=== PATIENT | female | born 1945 | race African-American/Black ===

== ENCOUNTER 2016-12-28 21:32 | Observation (INO) | payer OTHER ==
[~2016-12-28] VITALS: Ht 170.2 cm; Wt 86.7 kg
[~2016-12-28 21:32] MED LIST: ASPIR 8181 M1 PO; CALCITRATE + D1 EACH PO; FISH OIL 1,0001 EA10 PO; GLUCOSAMINE1000 MG PO; LISINOPRIL30 MG PO; MAGNESIUM100 MG PO; MULTI-VITAMIN1 EAC3 PO; NAPROXEN500 MG PO; NORVASC10 MG PO; PREDNISONE20 MG PO
[2016-12-28 22:14] LABS: HEMATOCRIT 39.9 % (36.0-46.0); MCHC 34.3 G/DL (30.0-36.0); MCV 81.6 FL (83-99); MEAN PLAT.VOLUME 10.6 uM^3 (9.5-12.4); PLATELET COUNT 234 K/uL (156-360); RBC DIS.WIDTH-CV 14.9 % (11.8-14.6); RBC DIS.WIDTH-SD 43.3 % (39-53); RED BLOOD COUNT 4.89 M/uL (3.80-5.20); WHITE BLOOD COUNT 10.2 K/uL (4.1-10.2)
[2016-12-28 22:23] LABS: CHLORIDE 106 mEq/L (99-109); POTASSIUM 3.8 mEq/L (3.7-5.4); SODIUM 141 mEq/L (136-147)
[2016-12-28 22:24] LABS: GLUCOSE 167 mg/dL (70-99)
[2016-12-28 22:26] LABS: ANION GAP 9 MEQ/L (2-14)
[2016-12-28 22:28] LABS: GFR ESTIMATE (CALCULATED) > 59 mL/min/
[2016-12-28 22:29] LABS: UREA NITROGEN (BUN) 18 mg/dL (9-23)
[2016-12-28 23:44] LABS: TROP-I INTERPRETATION NEGATIVE; TROPONIN-I < 0.01 ng/mL (0.0-0.30)
[2016-12-29 03:01] LABS: SERUM ETHYL ALCOHOL < 10 mg/dL
[2016-12-29 04:17] VITALS: BP 155/71
[2016-12-29 06:23] LABS: AMPHETAMINES QUANT VALUE 0 NG/ML; BARBITUATES QUANT VALUE 0 NG/ML; BENZODIAZEPINES QUANT VALUE 0 NG/ML; BENZODIAZEPINES, URINE SCREEN Negative (200 ng/mL); MARIJUANA QUANT VALUE 0 NG/ML; OPIATES QUANTITATIVE VALUE 0 NG/ML; PHENCYCLIDINE QUANT VALUE 0 NG/ML
[2016-12-29 07:47] VITALS: BP 140/73
[2016-12-29 11:31] VITALS: BP 164/72
[2016-12-29 12:21] LABS: TROP-I INTERPRETATION NEGATIVE; TROPONIN-I 0.01 ng/mL (0.0-0.30)
[2016-12-29] MEDS ORDERED: ACID CONTROLLER20 MG PO (13:57)
[2016-12-29] MEDS ORDERED: TRAMADOL HCL50 MG PO (13:58)
== END 2016-12-29 14:48 | disposition home or self-care (01) ==
LOC: EME 21:32 → EDOF 12-29 02:20 → 5WEST 12-29 02:20 → EDOF 12-29 02:20 → 5WEST 12-29 02:35 → EDOF 12-29 02:35 → 5WEST 12-29 04:05
PROVIDERS: Internal Medicine Cardiovascular Disease; Physician Assistant Medical
DX: R55 Syncope and collapse (principal); R07.81 Pleurodynia; R00.1 Bradycardia, unspecified; I10 Essential (primary) hypertension; R51 Headache; R00.2 Palpitations; R73.9 Hyperglycemia, unspecified; S00.212A Abrasion of left eyelid and periocular area, initial encounter; Z96.651 Presence of right artificial knee joint; Z82.49 Family history of ischemic heart disease and other diseases of the circulatory system; Z84.1 Family history of disorders of kidney and ureter; Z80.42 Family history of malignant neoplasm of prostate; Z79.82 Long term (current) use of aspirin; Y92.89 Other specified places as the place of occurrence of the external cause; Y93.01 Activity, walking, marching and hiking
CPT/HCPCS: 70450; 71020; 71250; 80048; 80306 90; 84484; 85027; 93005; 99281; 99285; G0378; G0480; J1644

== ENCOUNTER 2017-11-26 08:11 | Emergency (ER) | payer OTHER ==
[~2017-11-26] VITALS: Ht 167.6 cm; Wt 87.4 kg
[~2017-11-26 08:11] MED LIST changes: +ACID CONTROLLER20 MG PO; +TRAMADOL HCL50 MG PO
[2017-11-26 08:57] LABS: BASOPHIL (%) 0.3 % (0-1); EOSINOPHIL (%) 1.2 % (0-5); EOSINOPHIL COUNT 0.1 K/uL (0-0.3); HEMATOCRIT 41.9 % (36.0-46.0); HEMOGLOBIN 14.4 G/DL (11.9-15.5); IMMATURE GRANULOCYTE (%) 0.2 % (0.0-0.7); LYMPHOCYTE (%) 17.2 % (15-42); LYMPHOCYTE COUNT 1.6 K/uL (1.0-2.8); MCH 28.5 PG (29.0-34.0); MCHC 34.4 G/DL (30.0-36.0); MONOCYTE (%) 9.8 % (3-12); MONOCYTE COUNT 0.9 K/uL (0-0.8); NEUTROPHIL (%) 71.3 % (45-76); NEUTROPHIL COUNT 6.7 K/uL (1.8-6.4); PLATELET COUNT 190 K/uL (156-360); RBC DIS.WIDTH-CV 14.7 % (11.8-14.6); RED BLOOD COUNT 5.05 M/uL (3.80-5.20); WHITE BLOOD COUNT 9.4 K/uL (4.1-10.2)
[2017-11-26 09:05] LABS: ALBUMIN 4.1 g/dL (3.2-4.8)
[2017-11-26 09:06] LABS: CHLORIDE 110 mEq/L (99-109); POTASSIUM 3.9 mEq/L (3.7-5.4); SODIUM 141 mEq/L (136-147)
[2017-11-26 09:08] LABS: GLUCOSE 109 mg/dL (70-99); TOTAL PROTEIN 6.7 g/dL (6.4-8.3)
[2017-11-26 09:10] LABS: TOTAL BILIRUBIN 0.6 mg/dL (0.0-1.0)
[2017-11-26 09:11] LABS: ALKALINE PHOSPHATASE 99 IU/L (3-129)
[2017-11-26 09:12] LABS: CREATININE 0.7 mg/dL (0.6-1.3); GFR ESTIMATE (CALCULATED) > 59 mL/min/
[2017-11-26 09:13] LABS: AST (GOT) 12 IU/L (2-34); UREA NITROGEN (BUN) 12 mg/dL (9-23)
[2017-11-26 09:15] LABS: ALT (GPT) 12 IU/L (3-49)
[2017-11-26 09:18] LABS: TROP-I INTERPRETATION NEGATIVE; TROPONIN-I < 0.01 ng/mL (0.0-0.30)
[2017-11-26 11:21] LABS: TROP-I INTERPRETATION NEGATIVE; TROPONIN-I < 0.01 ng/mL (0.0-0.30)
[2017-11-26] MEDS ORDERED: NAPROXEN500 MG PO (13:00)
[2017-11-26 13:46] VITALS: BP 175/72
== END 2017-11-26 14:14 | disposition home or self-care (01) ==
LOC: EME 08:11
PROVIDERS: Physician Assistant
PROC: 0RSDXZZ Reposition Left Temporomandibular Joint, External Approach (ICD-10-PCS; principal; 2017-11-26)
DX: S03.02XA Dislocation of jaw, left side, initial encounter (principal); M26.69 Other specified disorders of temporomandibular joint; I10 Essential (primary) hypertension; F41.9 Anxiety disorder, unspecified; Z96.651 Presence of right artificial knee joint
CPT/HCPCS: 70110; 70487; 71046; 80053; 84484; 85025; 93005; 99281; 99285; J1885; J3010

== ENCOUNTER 2018-02-23 15:34 | Observation (INO) | payer OTHER ==
[~2018-02-23] VITALS: Ht 167.6 cm; Wt 88.2 kg
[~2018-02-23 15:34] MED LIST changes: +DAILY VALUE1 EACH PO; -MULTI-VITAMIN1 EAC3 PO
[2018-02-23 16:28] LABS: HEMATOCRIT 41.6 % (36.0-46.0); HEMOGLOBIN 14.3 G/DL (11.9-15.5); MCH 28.7 PG (29.0-34.0); MCHC 34.4 G/DL (30.0-36.0); MCV 83.5 FL (83-99); RBC DIS.WIDTH-CV 15.6 % (11.8-14.6); RED BLOOD COUNT 4.98 M/uL (3.80-5.20); WHITE BLOOD COUNT 7.7 K/uL (4.1-10.2)
[2018-02-23 16:39] LABS: CHLORIDE 106 mEq/L (99-109); POTASSIUM 4.1 mEq/L (3.7-5.4); SODIUM 142 mEq/L (136-147)
[2018-02-23 16:41] LABS: GLUCOSE 115 mg/dL (70-99)
[2018-02-23 16:45] LABS: CREATININE 0.8 mg/dL (0.6-1.3); GFR ESTIMATE (CALCULATED) > 59 mL/min/
[2018-02-23 16:46] LABS: UREA NITROGEN (BUN) 16 mg/dL (9-23)
[2018-02-23 16:55] LABS: TROP-I INTERPRETATION NEGATIVE; TROPONIN-I 0.01 ng/mL (0.0-0.30)
[2018-02-23 17:32] LABS: HEMATOLOGY COMMENT 1 SN; PLAT.SUFFICIENCY ADEQUATE; PLATELET COUNT 241 K/uL (156-360)
[2018-02-23] MEDS ORDERED: METOPROLOL SUC100 MG PO (23:04)
[2018-02-24 01:08] LABS: TROP-I INTERPRETATION NEGATIVE; TROPONIN-I < 0.01 ng/mL (0.0-0.30)
[2018-02-24 02:02] VITALS: BP 190/77
[2018-02-24 04:22] VITALS: BP 162/67
[2018-02-24 06:59] VITALS: BP 185/75
[2018-02-24 12:02] VITALS: BP 163/72
[2018-02-24] MEDS ORDERED: AMLODIPINE BESY10 MG PO (12:48)
[2018-02-24] MEDS ORDERED: VALSARTAN160 MG PO (12:49)
[2018-02-24] MEDS ORDERED: HYDROCHLOROTH12.5 M3 PO (12:49)
== END 2018-02-24 14:04 | disposition home or self-care (01) ==
LOC: EME 15:34 → RME 15:34 → EDOF 02-24 00:39 → ENRESERV 02-24 00:39 → EDOF 02-24 01:42 → 5WEST 02-24 01:49 → ENRESERV 02-24 07:22 → 4SOUTH 02-24 07:32
PROVIDERS: Hospitalist
DX: R07.9 Chest pain, unspecified (principal); R13.10 Dysphagia, unspecified; I10 Essential (primary) hypertension; G47.33 Obstructive sleep apnea (adult) (pediatric); E04.9 Nontoxic goiter, unspecified; R91.1 Solitary pulmonary nodule; R00.1 Bradycardia, unspecified; Z90.49 Acquired absence of other specified parts of digestive tract; Z82.49 Family history of ischemic heart disease and other diseases of the circulatory system; Z84.1 Family history of disorders of kidney and ureter; Z80.42 Family history of malignant neoplasm of prostate
CPT/HCPCS: 71046; 71260; 80048; 84484; 85027; 93005; 99281; 99285; G0378; J1644; J7040